=== PATIENT | female | born 2000 | race Caucasian/White ===

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

== ENCOUNTER 2021-10-30 12:47 | Emergency (ER) | payer BC, SELFPAY ==
[2021-10-30 12:42] VITALS: BP 112/76; PULSE 79; RESP 16; TEMP 37.2; O2SAT 100
--- NOTE | 2021-10-30 12:48 | HMH.EDGENADL ---
ED Disposition Clinical Impression: Panic disorder Disposition: Home, Self-Care Condition on Discharge: Good Instructions: Anxiety and Panic Attacks (Alternative Therapy), Anxiety Disorders Time of Disposition: 13:04 - Critical Care Critical Care Time: No Attestation: On , the high probability of a clinically significant, sudden or life threatening deterioration of the following system(s) required my full and direct attention, intervention and personal management. The time I documented below is in addition to time spent performing reported procedures but includes the following listed in this critical care notation. Medical Decision Making - Medical Records Medical records reviewed: Yes: I reviewed the patient's medical records. - Ej Inquiry Pt receiving controlled substance: No Vital Signs: 10/30/21 12:42 Temperature 99.0 F Temperature Source Oral Pulse Rate [Right Radial] 79 Respiratory Rate 16 Blood Pressure [Right Arm] 112/76 Blood Pressure Mean [Right Arm] 88 Blood Pressure Source [Right Arm] Automatic Cuff Blood Pressure Position [Right Arm] Sitting 02 Sat by Pulse Oximetry 100 Oxygen Delivery Method Room Air Orders (Tests/Meds): ORDERS Category Date Time Status EKG Request [ECG Request by /Wing] Stat Y 10/30/21 12:53 Ordered - ECG Data Tracing #1 I reviewed this ECG and interpreted as documented below: NSR at 72 normal axis W[place] 120 QRS [address]/T wave changes General Adult HPI - General Stated complaint: Panic Attack Time Seen by Provider: 10/30/21 12:48 Mode of Arrival: EMS Limitations: No Limitations - History of Present Illness HPI narrative: 21 yo/F, on OCP's, does have history of panic attack, was at work, states shortly after lunch started noticing heart racing, heavy breathing, started feeling tingling of the lips, then developed mild central chest discomfort. Work colleagues called EMS. Pt reports symptoms improved currently, just very mild discomfort, breathing, palpitations now absent. History of similar prior episodes, denies any leg swelling, or history of DVT/PE. Placed on O2 for comfort by EMS, able to DC here, normal oxygenation. - Related Data Home Medications Medication Instructions Recorded Confirmed norgestimate 0.25 mg-ethinyl 1 tab PO DAILY 09/20/19 10/18/19 estradiol 35 mcg (21) tablet Allergies Allergy/AdvReac Type Severity Reaction Status Date / Time No Known Allergies Allergy Verified 10/18/19 10:23 [facility] History - Hepatitis A Screen Attestation statement:: This patient has been screened for Hepatitis A risk factors. Medical History: Denies:: Cancer, Diabetes Mellitus Type 1, Diabetes Mellitus Type 2, Internal Pacemaker, MRSA, Seizures Other Medical History: Denies: Blood Transfusion Reaction Other Surgeries: Yes: No Previous Surgery, Cholecystectomy, Other (wisdom teeth). No: Pacemaker Amputation: No Fractures: No - Social History Smoking Status: Never smoker Alcohol Intake: never Substance Use Type: denies use Occupational Status: student Housing: house Household Members: family Family Hx:: No significant family history ROS Obtained: Yes All systems reviewed & no additional complaints - Constitutional Constitutional: Reports system reviewed and no additional complaints, except as docu - Eyes Eyes: Reports system reviewed and no additional complaints, except as docu - ENT Ears, Nose, Mouth, and Throat: Reports system reviewed and no additional complaints, except as docu - Cardiovascular Cardiovascular: Reports chest pain, Reports dyspnea, Reports palpitations - Respiratory Respiratory: Reports dyspnea - Gastrointestinal Gastrointestingal: Reports: system reviewed and no additional complaints, except as docu - Musculoskeletal Musculoskeletal: Reports system reviewed and no additional complaints, except as docu - Integumentary/Breasts Skin/Breast: Reports system reviewed a
--- NOTE | 2021-10-30 12:49 | PC.NURSE ---
TRAY GARLAND at speaking with patient
--- NOTE | 2021-10-30 13:00 | ECG_ITS ---
APPROVED REPORT Exam: Resting ECG HR:72 bpm ECG Measurements Heart Rate 72 AXES KS 120 P 29 QRSd 96 QRS 73 QT 385 T 55 QTc 409 Conclusion SINUS RHYTHM POSSIBLE RIGHT VENTRICULAR CONDUCTION DELAY [RSR (QR) IN V1/V2] BORDERLINE ECG UNCONFIRMED REPORT Electronically signed by : Dawit Henao MD 10/31/2021 15:37:42
--- NOTE | 2021-10-30 13:04 | PC.NURSE ---
pt mother at , pt given glass of water pt sitting up in bed
[2021-10-30 13:19] VITALS: BP 112/68; PULSE 76; RESP 14; TEMP 37.2; O2SAT 100
== END 2021-10-30 13:19 | disposition home or self-care (01) ==
PROVIDERS: Emergency Provider Emergency Medicine
DX: F41.0 Panic disorder [episodic paroxysmal anxiety] (principal); R00.0 Tachycardia, unspecified; R20.2 Paresthesia of skin
CPT/HCPCS: 93005; 99284

== ENCOUNTER 2022-02-23 20:25 | Emergency (ER) | payer BC, SELFPAY ==
[2022-02-23] VITALS (11 sets, daily range): BP systolic 93–127; BP diastolic 51–81; PULSE 70–100; RESP 17; TEMP 36.7–36.8; O2SAT 96–100; BMI 21.6
--- NOTE | 2022-02-23 21:10 | CT_ITS ---
PROCEDURE INFORMATION: Exam: CT Abdomen And Pelvis With Contrast Exam date and time: 02/23/2022 9:43 PM Age: 22 years old Clinical indication: Abdominal pain; Acute; Additional info: Abd pain TECHNIQUE: Imaging protocol: Computed tomography of the abdomen and pelvis with contrast. Radiation optimization: All CT scans at this facility use at least one of these dose optimization techniques: automated exposure control; mA and/or kV adjustment per patient size (includes targeted exams where dose is matched to clinical indication); or iterative reconstruction. Contrast material: ISOVUE; Contrast volume: 75 ml; Contrast route: IV; COMPARISON: No relevant prior studies available. FINDINGS: Liver: Normal. No mass. Gallbladder and bile ducts: Cholecystectomy. Pancreas: Normal. No ductal dilation. Spleen: Normal. No splenomegaly. Adrenal glands: Normal. No mass. Kidneys and ureters: Normal. No hydronephrosis. Stomach and bowel: Unremarkable. No obstruction. No mucosal thickening. Appendix: Normal appendix. Intraperitoneal space: Unremarkable. No free air. No significant fluid collection. Vasculature: Unremarkable. No abdominal aortic aneurysm. Lymph nodes: Unremarkable. No enlarged lymph nodes. Urinary bladder: Unremarkable as visualized. Reproductive: Unremarkable as visualized. Bones/joints: Unremarkable. No acute fracture. Soft tissues: Unremarkable. IMPRESSION: No acute findings.
--- NOTE | 2022-02-23 21:12 | PC.NURSE ---
Dr. Martinez notified of triage complete and verbal orders received at this time, orders placed
--- NOTE | 2022-02-23 21:24 | PC.NURSE ---
called to check status of labs d/t ordered is still noted. Tri states they are receiving them now.
[2022-02-23 21:28] LABS: Appearance,Urine CLEAR (Clear); Bilirubin,Urine Negative (Negative); Blood, Urine Negative (Negative); Color,Urine YELLOW (Yellow); Glucose,Urine (UA) Negative (Negative); Ketones,Urine Negative (Negative); Leukocyte Esterase,Urine Negative (Negative); Nitrate,Urine Negative (Negative); Protein,Urine Negative (Negative); Specific Gravity, Urine 1.015 (1.005-1.030); Urobilinogen,Urine 0.2 EU/dl (0.2)
[2022-02-23 21:29] LABS: Basophils % 0.4 % (0.1-2.0); Eosinophils # 0.1 K/mm3 (0.0-0.4); Eosinophils % 0.6 % (0.1-12.0); Hematocrit 41.1 % (37.0-47.0); Hemoglobin 13.4 g/dL (12.2-16.2); Lymphocytes # 1.1 K/mm3 (0.7-4.5); Lymphocytes % 11.3 % (10-50); Mean Corpuscular HGB Conc 32.7 g/dL (31.8-35.4); Mean Corpuscular Volume 88.6 fl (81-99); Mean Platelet Volume 8.4 fl (7.4-10.4); Microscopic, Urine URINE MICROSCOPIC (MICROSCOPIC); Monocytes # 0.4 K/mm3 (0.1-1.0); Monocytes % 3.8 % (1.7-9.3); Neutrophils # 7.9 K/mm3 (1.8-7.8); Platelet Count 283 K/mm3 (142-424); Red Blood Count 4.64 M/mm3 (4.20-5.40); White Blood Count 9.4 K/mm3 (4.8-10.8)
[2022-02-23 21:33] LABS: Urine Pregnancy, HCG Qual. Negative (Negative)
--- NOTE | 2022-02-23 21:35 | HMH.EDABDPAI ---
Discharge Plan Disposition Patient Disposition: Home, Self-Care Chief Complaint: Abdominal Pain Prescriptions Prescriptions: No Action norgestimate 0.25 mg-ethinyl estradiol 35 mcg (21) tablet 0.25-35 mg-mcg (21) tablet 1 tab PO DAILY propranolol 10 mg tablet See Rx Instructions .ROUTE .COMPLEX Label Comments: TAKE 1 TABLET 3 TIMES EACH DAY UP TO 3 TIMES EACH DAY. TAKE AT FIRST SIGN OF PANIC ATTACK SYMPTOMS. Rx Instructions: TAKE 1 TABLET 3 TIMES EACH DAY UP TO 3 TIMES EACH DAY. TAKE AT FIRST SIGN OF PANIC ATTACK SYMPTOMS. Referrals Follow up/Referrals: Reba Sales [Primary Care Provider] - See instructions Clinical Impressions Clinical Impression: Gastroenteritis Instructions Patient Instructions: DI for Acute Abdominal Pain Discharge ED Provider: Romel Martinez Abdominal Pain HPI General Chief Complaint: Abdominal Pain Stated Complaint: ADOMINAL PAIN Time Seen by Provider: 02/23/22 21:35 Mode of Arrival: Family Vehicle Source of Information: Patient and Relative Limitations: No Limitations Description of Symptoms (Recalled from ER Triage Doc. by RN): Pt c/o vinh-umbilical pain that began this morning. She also report nausea and watery diarrhea. States she was told she had a virus by her PCP office on Wednesday (02/17). Denies fever, cough, or vomiting. She has had body aches. Tender to abd. She has had her gallbladder removed but still has her appendix. Pt does report the pain intensifies after eating. No significant PMH. History of Present Illness HPI narrative: crampy abd pain with loose stool complaint: abdominal pain Onset (ago): hour(s) Consistency: intermittent Location: periumbilical Severity: moderate Associated symptoms: denies other symptoms Related Data Home Medications Medication Instructions Recorded Confirmed norgestimate 0.25 mg-ethinyl 1 tab PO DAILY control 09/20/19 02/23/22 estradiol 35 mcg (21) tablet propranolol 10 mg tablet See Rx Instructions .Route 02/23/22 02/23/22 .COMPLEX Anxiety Allergies Allergy/AdvReac Type Severity Reaction Status Date / Time No Known Allergies Allergy Verified 10/18/19 10:23 [facility] PFS Social History Smoking Status: Current every day smoker alcohol intake: never substance use type: denies use current occupational status: student Travel in the last 8 weeks: None household members: family housing: house current occupational exposures/hazards: No caffeine: No ROS Obtained: Yes All systems reviewed & no additional complaints except as documented Physical Exam General General appearance: alert Head Head exam: normocephalic Eye Eye exam: Present PERRL and EOMI; Absent scleral icterus ENT ENT exam: Present mucous membranes moist Neck Neck exam: Present full ROM and trachea midline Respiratory Respiratory exam: Present normal lung sounds bilaterally; Absent respiratory distress Cardiovascular Cardiovascular exam: Present regular rate; Absent systolic murmur Abdominal Exam Abdominal exam: Present soft and tenderness; Absent guarding Abdominal tenderness: Present diffuse and moderate Extremities Exam Extremities exam: Present full ROM Neurological Exam Neurological exam: Present alert, oriented X3 and CN II-XII intact Psychiatric Psychiatric exam: Present normal affect Skin Skin exam: Absent rash Medical Decision Making Medical Records Medical records reviewed: Yes I reviewed the patient's medical records. Ej Inquiry Pt receiving controlled substance: No Vital Signs: 02/23/22 20:26 Temperature 98.3 F Temperature Source Oral Pulse Rate [Right] 90 Respiratory Rate 17 Blood Pressure [Right Arm] 120/75 Blood Pressure Mean [Right Arm] 90 Blood Pressure Source [Right Arm] Automatic Cuff 02 Sat by Pulse Oximetry 100 Oxygen Delivery Method Room Air Lab Data Lab results reviewed: Yes I reviewed the patient's lab results. Lab Results 02/23/22 20:48: Urine
[2022-02-23 21:37] LABS: Chloride 103 mmol/L (98-107); Sodium 135 mmol/L (136-145)
[2022-02-23 21:38] LABS: Potassium 3.6 mmoL/L (3.5-5.1)
[2022-02-23 21:40] LABS: Alanine Aminotransferase 15 U/L (12-78); Alkaline Phosphatase 76 U/L (38-126); Amylase 88 U/L (30-110); Anion Gap 13.6 mEq/L (5-15); Aspartate Amino Transferase 33 U/L (14-36); Bilirubin,Total 0.2 mg/dl (0.2-1.3); Blood Urea Nitrogen 12 mg/dl (7-17); Calcium 8.3 mg/dl (8.4-10.2); Carbon Dioxide 22 mmol/L (22.0-30.0); Creatinine Clearance Estimated 118 mL/min (50-200); Estimated Glomerular Filt Rate 106 ml/min (>60); GFR (African American) 128 ML/MIN (>60); Glucose 104 mg/dl (74-100)
[2022-02-23 21:41] LABS: Albumin Level 3.8 g/dl (3.5-5.0); Albumin/Globulin Ratio 1.4 (1.1-1.8); Globulin 2.8 g/dL (1.3-3.2); Lipase 64 U/L (23-300); Total Protein,Serum 6.6 g/dl (6.3-8.2)
[2022-02-23 21:45] LABS: Bacteria,Urine 3+ /lpf; WBC,Urine Occasional #/hpf (0-3)
--- NOTE | 2022-02-23 21:56 | PC.NURSE ---
Pt back from ct scan
--- NOTE | 2022-02-23 22:03 | PC.NURSE ---
dR. Hilario AT BEDSIDE, VERBAL ORDER FOR MORPHINE 2 MG IVP 1X, ORDER PLACED
--- NOTE | 2022-02-23 23:07 | PC.NURSE ---
MD AT BEDSIDE DISCUSSING RESULTS
== END 2022-02-23 23:32 | disposition home or self-care (01) ==
PROVIDERS: Emergency Provider Emergency Medicine; PCP Nurse Practitioner Family
DX: R10.33 Periumbilical pain (principal); R11.0 Nausea; R19.7 Diarrhea, unspecified; F17.200 Nicotine dependence, unspecified, uncomplicated; Z79.3 Long term (current) use of hormonal contraceptives
CPT/HCPCS: 74177; 80053; 81001; 81025; 82150; 83690; 85025; 87086; 96361; 96374; 96375; 99285; J2405; Q9967

== ENCOUNTER → 2022-02-24 14:41 | Outpatient (CLI) | payer BC, SELFPAY | PROVIDERS: PCP Nurse Practitioner Family; Visit Provider Emergency Medicine | DX: R10.9 Unspecified abdominal pain (principal); R19.7 Diarrhea, unspecified ==

== ENCOUNTER → 2022-07-24 13:03 | Outpatient (CLI) | payer BC, SELFPAY ==
--- NOTE | 2022-07-24 13:11 | XR_ITS ---
FINAL REPORT CLINICAL HISTORY: Pt has been coughing up blood x 2 mos w c/o back pain. Recently started vaping. FINDINGS: Two views of the chest were obtained. The heart size and pulmonary vascularity are within normal limits. The mediastinum is normal. No acute pulmonary abnormality is identified. There is no pneumothorax. The bony thorax is intact. IMPRESSION: No active cardiopulmonary disease. Reviewed, Interpreted and Dictated by Wale Sorensen III, MD Transcribed by Gifty Sadler Authenticated and [facility]
== END ==
LOC: RAD 13:05
PROVIDERS: PCP Nurse Practitioner Family; Visit Provider Nurse Practitioner Family
DX: R05.3 Chronic cough (principal)
CPT/HCPCS: 71046

== ENCOUNTER → 2022-12-04 13:23 | Outpatient (CLI) | payer BC, SELFPAY ==
--- NOTE | 2022-12-04 13:31 | CT_ITS ---
FINAL REPORT TECHNIQUE: Axial imaging of the chest is obtained after the administration of contrast. 3-D MIP reformatted images were also obtained and reviewed per PE protocol. CLINICAL HISTORY: PULMONARY EMBOLISM f/u x 3 months COMPARISON: Prior films from [facility] 08/04/2022 FINDINGS: The pulmonary arteries are well filled. There is no evidence of pulmonary embolus. There is no aortic dissection or intimal flap. There is no mediastinal, hilar, or axillary lymphadenopathy. There is triangular soft tissue density in the anterior mediastinum in this age group consistent with residual thymus. The lungs are clear. There is no pleural or pericardial effusion. Limited evaluation of the upper abdomen is without acute abnormality. No acute osseous abnormality. IMPRESSION: No evidence of pulmonary embolism or aortic dissection. No acute intrathoracic abnormality. Reviewed, Interpreted and Dictated by Neha Walker MD Transcribed by Soheila Ag Authenticated and . [facility]
== END ==
LOC: RAD 13:23
PROVIDERS: PCP Nurse Practitioner; Visit Provider Nurse Practitioner
DX: I26.99 Other pulmonary embolism without acute cor pulmonale (principal)
CPT/HCPCS: 71275; Q9967

== ENCOUNTER 2023-06-06 00:33 | Emergency (ER) | payer BC, SELFPAY ==
--- NOTE | 2023-06-06 00:41 | HMH.EDGENADL ---
Discharge Plan Disposition Patient Disposition: Home, Self-Care Condition: Good Prescriptions Prescriptions: New lidocaine 5 % adhesive patch,medicated 1 patch topical DAILY PRN (Reason: pain) Qty: 30 0RF Rx Instructions: leave on most painful area for up to 12 hrs No Action Linzess 145 mcg capsule 145 mcg PO DAILY omeprazole 20 mg capsule,delayed release(DR/EC) 20 mg PO DAILY Patient Comments: TAKE 1 CAPSULE 1 TIME EACH DAY Referrals Follow up/Referrals: Argelia Lacey APRN [Primary Care Provider] - See instructions Activity Restrictions/Add. Instructions Additional Instructions/Restrictions: Please use lidocaine patches as needed. Please take Tylenol and ibuprofen as needed for pain. Please monitor the area. Please follow-up with your primary care provider. Please return to the emergency department if you develop any new or worsening symptoms or become concerned for your health. Clinical Impressions Clinical Impression: Arm pain, right Discharge ED Provider: Fredrick Olmstead General Adult HPI General Chief complaint: Extremity Problem,Nontraumatic Stated complaint: lump under right arm Time Seen by Provider: 06/06/23 00:37 History of Present Illness HPI narrative: 23-year-old female with history of PEs in the past presents with painful area of skin on the superior posterior upper arm. She reports it has been there for a couple weeks, but today has been worse after she was moving around a lot. She denies any fevers, chills, lymphadenopathy, weight loss or weight gain or any other systemic symptoms. She had 2 provoked PEs in the past as result of smoking and OCPs. She is no longer on anticoagulation. Related Data Home Medications Medication Instructions Recorded Confirmed linaclotide 145 mcg capsule 145 mcg PO DAILY 01/15/23 03/01/23 (Linzess) omeprazole 20 mg capsule,delayed 20 mg PO DAILY 01/15/23 03/01/23 release Previous Rx's Medication Instructions Recorded lidocaine 5 % topical patch 1 patch topical DAILY PRN pain #30 06/06/23 ea Allergies Allergy/AdvReac Type Severity Reaction Status Date / Time No Known Allergies Allergy Verified 03/01/23 14:25 [facility] Disclaimer: The information contained in this section may have been updated after the patient was seen, as this information can be updated by other users. Medical History History of blood clots one blood clot in each lung History of pulmonary embolus (PE) bilateral PE 06/2022 Surgical History History of cholecystectomy Family History Other Alcoholism Heart attack Social History Smoking Status: Never smoker alcohol intake: never substance use type: denies use current occupational status: student Travel in the last 8 weeks: None household members: family housing: house current occupational exposures/hazards: No caffeine: No ROS Obtained: Yes All systems reviewed & no additional complaints except as documented Physical Exam General General appearance: alert and in no apparent distress Head Head exam: atraumatic and normocephalic Eye Eye exam: Present normal appearance, PERRL and EOMI ENT ENT exam: Present normal oropharynx and normal external ear exam Neck Neck exam: Present normal inspection and full ROM Chest Chest inspection: Present normal inspection and symmetric chest wall rise; Absent tenderness Respiratory Respiratory exam: Present normal lung sounds bilaterally; Absent respiratory distress Cardiovascular Cardiovascular exam: Present regular rate and normal rhythm Abdominal Exam Abdominal exam: Present soft; Absent distention, tenderness or guarding Extremities Exam Extremities exam: Present normal inspection and other (Small few centimeters square area of tenderness to the skin of the right posterior upper arm. No erythema, no induration, no underlying fluctuance. Does not appear significantly different from the surrounding skin.) Back Exam Back exam: Present normal inspection; Absent tenderness Neurological Exam Neurological exam: Present alert and oriented X3; Absent motor sensory deficit Psychiatric Psychiatric exam: Present normal affect and normal mood Skin Skin exam: Present warm, dry and normal color Lymphatic Lymphatic Findings: no adenopathy Medical Decision Making Medical Records Medical records reviewed: Yes I reviewed the patient's medical records. Ej Inquiry Pt receiving controlled substance: No Ej was queried for this patient: No Vital Signs: 06/06/23 00:43 06/06/23 01:01 Temperature 98.3 F 98.3 F Temperature Source Oral Pulse Rate 130 H Pulse Rate [Left] 130 H Respiratory Rate 16 16 Blood Pressure 130/79 Blood Pressure [Right Arm] 130/79 Blood Pressure Mean [Right Arm] 96 Blood Pressure Source [Right Arm] Automatic Cuff Blood Pressure Position [Right Arm] Sitting 02 Sat by Pulse Oximetry 98 Oxygen Delivery Method Room Air Lab Data Lab results reviewed: Yes I reviewed the patient's lab results. Medical Decision Narrative: 21-year-old female with history of PE presents with an area of tender skin over the right posterior arm for last couple weeks, worse in the last couple of days. See HPI for details. Differential diagnosis includes but limited to abscess, cellulitis, lymphadenitis, rash, malignancy, blood clot. Besides tenderness, no other significant physical exam abnormalities noted. A bedside ultrasound was performed which on my interpretation showed no significant abnormalities. Specifically showed no evidence of cobblestoning to suggest cellulitis, no underlying abscess, no venous thrombosis, no significant lymphadenopathy. The underlying etiology of patient's area of tender skin is unclear, but does not appear to be emergent at this time. Patient was discharged with instructions take Tylenol ibuprofen at home, was given prescription for lidocaine patches. Encouraged to monitor the area and follow-up if symptoms worsen or do not improve Procedures Risk/Benefits of Procedure(s) Were Explained: Yes Limited Ultrasound Indication:: Limited soft tissue ultrasound Indication: Skin pain Identified structures: Location: Skin and subcutaneous tissues of the right posterior upper arm Findings: Normal soft tissue ultrasound without evidence of abscess, cellulitis, foreign body, lymphadenopathy, mass Impression: Normal soft tissue ultrasound Images were saved to permanent archive The study was performed by me at bedside and was technically adequate Soft Tissue CPT Codes: CPT Upper extremity: 00517-26 Critical Care Critical Care Time Critical Care Time: No
[2023-06-06 00:43] VITALS: BP 130/79; PULSE 130; RESP 16; TEMP 36.8; O2SAT 98; BMI 20.9
[2023-06-06 01:01] VITALS: BP 130/79; PULSE 130; RESP 16; TEMP 36.8
== END 2023-06-06 01:08 | disposition home or self-care (01) ==
LOC: ER 00:44
PROVIDERS: Emergency Provider Emergency Medicine; PCP Nurse Practitioner
DX: M79.621 Pain in right upper arm (principal); Z86.711 Personal history of pulmonary embolism; Z86.718 Personal history of other venous thrombosis and embolism
CPT/HCPCS: 99284

== ENCOUNTER 2023-06-16 12:45 | Outpatient (CLI) | payer BC, SELFPAY ==
--- NOTE | 2023-06-16 12:54 | US_ITS ---
FINAL REPORT TECHNIQUE: Limited sonographic images of the right posterior humerus and axillary regions were obtained. CLINICAL HISTORY: NODULE ON UPPER LIMB FINDINGS: No mass, adenopathy, or fluid collection is identified. Incidental note is made of normal axillary lymph nodes. IMPRESSION: No discrete lesion identified. If clinical suspicion is high, recommend contrast enhanced CT or MRI. Reviewed, Interpreted and Dictated by Kandis Jorge MD Transcribed by Bev Silva Authenticated and [facility]
== END 2023-06-16 23:59 ==
LOC: RAD 12:47
PROVIDERS: PCP Nurse Practitioner; Visit Provider Nurse Practitioner
DX: R22.31 Localized swelling, mass and lump, right upper limb (principal)
CPT/HCPCS: 76882

== ENCOUNTER 2023-12-10 13:59 | Outpatient (CLI) | payer BC, SELFPAY ==
[2023-12-10 15:32] LABS: HCG,Quantitative < 2 mIU/ml (0-5.42)
[2023-12-11 10:40] LABS: HIV (1&2) Antibody Rapid NON REACTIVE (NONREACTIVE)
[2023-12-12 08:09] LABS: HBsAg Screen Negative (Negative); HCV Ab Non Reactive (Non Reactive); Hep A Ab, IGM Negative (Negative); Hep B Core Ab, IgM Negative (Negative)
[2023-12-12 11:50] LABS: Rapid Plasma Reagin Ab Titer Non Reactive titer (NonRea<1:1)
== END 2023-12-10 23:59 | disposition home or self-care (01) ==
PROVIDERS: PCP Nurse Practitioner Family; Visit Provider Obstetrics & Gynecology
DX: N93.9 Abnormal uterine and vaginal bleeding, unspecified (principal)
CPT/HCPCS: 36415; 80074; 84702; 86593

== ENCOUNTER 2024-02-26 04:14 | Emergency (ER) | payer BC, SELFPAY ==
[2024-02-26 04:15] VITALS: BP 111/74; PULSE 90; RESP 16; TEMP 36.4; O2SAT 99; BMI 21.2
--- NOTE | 2024-02-26 04:22 | HMH.EDGENADL ---
Discharge Plan Disposition Patient Disposition: Home, Self-Care Condition: Good Prescriptions Prescriptions: New lidocaine 5 % adhesive patch,medicated See Rx Instructions .ROUTE .COMPLEX Qty: 15 0RF Rx Instructions: Apply 1 patch for up to 12 hours, then remove for at least 12 hours before using a new patch. No Action Linzess 145 mcg capsule 145 mcg PO DAILY albuterol sulfate 90 mcg/actuation HFA aerosol inhaler inhalation Referrals Follow up/Referrals: Reba Sales [Primary Care Provider] - See instructions Activity Restrictions/Add. Instructions Additional Instructions/Restrictions: You were evaluated in the ER and are appropriate for discharge at this time. Take Tylenol, ibuprofen if needed, do not exceed the recommended dose on the bottle. Use the prescribed lidocaine patches if needed. Apply patch for up to 12 hours, then remove for at least 12 hours before using a new patch. Make an appointment with your primary care doctor for reevaluation in few days. Return to the ER with new, worsening, or otherwise concerning symptoms. Clinical Impressions Clinical Impression: Muscle spasm Instructions Patient Instructions: DI for Neck Pain Print Language Print Language: Finnish Discharge ED Provider: Francine Holcomb General Adult HPI General Chief complaint: Neck Pain/Injury Stated complaint: L side back, neck pain Time Seen by Provider: 02/26/24 04:21 History of Present Illness HPI narrative: 24-year-old female presents to the ER with complaints of left-sided neck/shoulder pain. Patient reports yesterday she was doing a lot of cleaning and in the afternoon she started having pain in this area. She took Tylenol around 4 PM. She states she tried to sleep tonight but continued having discomfort and was not able to sleep well so she came to the ER. She believes she pulled a muscle. Patient reports she does have a history of PE but is no longer on blood thinners as the clots had resolved. Patient reports her last menstrual period was at the beginning of this month. She denies any headache, dizziness, numbness, tingling, weakness, chest pain, difficulty breathing, nausea, vomiting, abdominal pain or diarrhea. Related Data Home Medications ?Medication ?Instructions ?Recorded ?Confirmed linaclotide 145 mcg capsule 145 mcg PO DAILY 01/15/23 12/10/23 (Linzess) albuterol sulfate 90 mcg/actuation inhalation 07/13/23 12/10/23 aerosol inhaler Previous Rx's ?Medication ?Instructions ?Recorded lidocaine 5 % topical patch See Rx Instructions topical 02/26/24 .COMPLEX #15 ea Allergies Allergy/AdvReac Type Severity Reaction Status Date / Time No Known Allergies Allergy Verified 12/10/23 13:03 [facility] Disclaimer: The information contained in this section may have been updated after the patient was seen, as this information can be updated by other users. Medical History (Updated 02/26/24 @ 05:15 by Francine Holcomb MD) Abnormal uterine bleeding History of pulmonary embolus (PE) History of blood clots Surgical History History of cholecystectomy Family History Other Alcoholism Heart attack Social History Smoking Status: Never smoker alcohol intake: never substance use type: denies use current occupational status: student Travel in the last 8 weeks: None household members: family housing: house current occupational exposures/hazards: No caffeine: No Other Medical History Have you received the Flu Vaccine for this season: No Have you received the Pneumonia Vaccine: No ROS Obtained: Yes Systems reviewed as appropriate & no additional complaints except as documented Positive ROS per HPI Physical Exam General General appearance: alert and in no apparent distress Head Head exam: atraumatic and normocephalic Eye Eye exam: Present PERRL and EOMI ENT ENT exam: Present mucous membranes moist Neck Neck exam: Present normal inspection, full ROM and other (Tenderness of the left trapezius muscle from the base of the skull along the left cervical paraspinal region, top of the left shoulder, and medial to the left scapula. There is obvious spasm of this muscle.); Absent tenderness (No midline cervical spine tenderness, deformity, or step-off) Chest Chest inspection: Present symmetric chest wall rise Respiratory Respiratory exam: Present normal lung sounds bilaterally; Absent respiratory distress, wheezes or stridor Cardiovascular Cardiovascular exam: Present regular rate and normal rhythm Abdominal Exam Abdominal exam: Present soft; Absent distention or tenderness Extremities Exam Extremities exam: Present full ROM and other (No swelling, bruising, deformity, or other signs of injury. Patient neurovascularly intact throughout. Range of motion of left shoulder full.); Absent tenderness Neurological Exam Neurological exam: Present alert, oriented X3, CN II-XII intact and normal gait; Absent motor sensory deficit Psychiatric Psychiatric exam: Present normal affect and normal mood Skin Skin exam: Present warm and dry Medical Decision Making Medical Records Medical records reviewed: Yes I reviewed the patient's medical records. Screening: Per USPSTF and CDC recommendations, given the prevalence of disease in our region, it is our hospital?s policy to screen for HIV and viral Hepatitis for all patients aged 18 and over and those with ongoing risk factors. MR Comment: Patient was evaluated by OB and November 2023 and was found to have abnormal uterine bleeding. hCG at that time negative. Ej Inquiry Pt receiving controlled substance: No Vital Signs: 02/26/24 04:15 Temperature 97.6 F Temperature Source Oral Pulse Rate [Left Radial] 90 Respiratory Rate 16 Blood Pressure [Right Arm] 111/74 Blood Pressure Mean [Right Arm] 86 Blood Pressure Source [Right Arm] Automatic Cuff Blood Pressure Position [Right Arm] Sitting 02 Sat by Pulse Oximetry 99 Oxygen Delivery Method Room Air Lab Data Lab Results 02/26/24 05:03: Urine HCG, Qual Negative Orders (Tests/Meds): ED MEDICATIONS Generic Name Dose Route Start Last Admin Trade Name Freq PRN Reason Stop Dose Admin Ketorolac Tromethamine 15 mg 02/26/24 05:14 Ketorolac 30mg/Ml Vial IM 02/26/24 05:15 ONCE ONE Discontinued Medications Generic Name Dose Route Start Last Admin Trade Name Freq PRN Reason Stop Dose Admin Acetaminophen 1,000 mg 02/26/24 04:21 02/26/24 04:35 Acetaminophen 500mg Tab PO 02/26/24 04:22 1,000 mg ONCE ONE Administration Lidocaine 1 each 02/26/24 04:21 02/26/24 04:35 Lidocaine 5% Transdermal Patch TP 02/26/24 04:22 1 each ONCE ONE Administration ORDERS Category Date Time Status Urine , HCG Qual. Stat Lab 02/26/24 05:03 Completed Medical Decision Narrative: In summary, 24-year-old female with history of PE not on blood thinners at this time presents to the ER with left-sided neck, shoulder, upper back pain. On initial evaluation patient is hemodynamically stable, afebrile, cardiopulmonary exam reassuring, patient is neurologically intact throughout, full range of motion without any findings of trauma on exam. Patient has tenderness of the left trapezius muscle with obvious spasm of this muscle. Differential diagnose includes but is not limited to muscle spasm, I considered possible other musculoskeletal injury however have no evidence of this on exam and patient has no history of trauma. I considered rotator cuff injury but patient does not have pain in the shoulder. Remainder of exam benign. Patient received Tylenol, lidocaine patch initially. Urine test pending. UPT negative, patient received Toradol. On reassessment patient has had improvement of symptoms. She did not receive muscle relaxer in the ER since she drove herself. I believe she is appropriate for discharge with conservative management at this time. I prescribed lidocaine patches for continued management. Patient was given instructions on symptomatic management, follow up instructions, and return precautions for the emergency department. Patient indicated understanding and was discharged in stable condition. Critical Care Critical Care Time Critical Care Time: No
[2024-02-26] MEDS: LIDOCAINE 5% TRANSDERMAL PATCH 1 EACH TP (04:35)
[2024-02-26] MEDS: ACETAMINOPHEN 500MG TAB 1000 MG PO (04:35)
--- NOTE | 2024-02-26 05:06 | PC.NURSE ---
UA sent at 5:03
[2024-02-26 05:12] LABS: Urine Pregnancy, HCG Qual. Negative (Negative)
[2024-02-26] MEDS: KETOROLAC 30MG/ML VIAL 15 MG IM (05:19)
[2024-02-26 05:27] VITALS: BP 99/69; PULSE 83; RESP 18; TEMP 36.4; O2SAT 99
== END 2024-02-26 05:31 | disposition home or self-care (01) ==
PROVIDERS: Emergency Provider Emergency Medicine; PCP Nurse Practitioner Family
DX: M62.838 Other muscle spasm (principal); M54.2 Cervicalgia; M25.512 Pain in left shoulder; M54.9 Dorsalgia, unspecified
CPT/HCPCS: 81025; 96372; 99282; J1885